=== PATIENT | male | born 1985 | race Hispanic/Latino ===

== ENCOUNTER 2019-01-22 15:34 | Emergency (ER) | payer OTHER ==
[2019-01-22] MEDS ORDERED: LIDOCAINE HCL 2% VISCOUS 15 ML UDCUP ONE (16:39)
[2019-01-22] MEDS ORDERED: MAG HYDROX/AL HYDROX/SIMETH ES 30 ML SUSP UDCUP ONE (16:40)
== END 2019-01-22 18:24 | disposition home or self-care (01) ==
LOC: EDH 15:34
DX: F41.9 Anxiety disorder, unspecified (principal); R06.02 Shortness of breath; R20.2 Paresthesia of skin
CPT/HCPCS: 71046; 93005